=== PATIENT | female | born 1955 | race Caucasian/White ===

== ENCOUNTER 2020-03-26 13:41 | Outpatient (CLI) | payer OTHER, SELFPAY ==
--- NOTE | 2020-03-29 13:47 | WPDPFTINT ---
PFT Interpretation PFT Interpretation: This PFT met all criteria for ATS standards and reproducibility FEV/FVC 71% FEV1 112% FVC 110% FEF 25-75% 61% TLC 117% RV 124% RV/TLC 41% DLCO 102% when adjusted for alveolar volume but not adjusted for hemoglobin Flow volume loops showed some end expiratory coving Impression: Mild small airway obstruction with air trapping. This pattern may suggest Asthma or reactive airway disease. COPD is less likely but still possible. Clinical correlation is advised.
== END 2020-03-26 13:42 | disposition home or self-care (01) ==
PROVIDERS: PCP Family Medicine; Visit Provider Physician Assistant
DX: J98.01 Acute bronchospasm (principal); R94.2 Abnormal results of pulmonary function studies
CPT/HCPCS: 94060; 94726; 94729

== ENCOUNTER 2020-05-08 09:03 | Outpatient (CLI) | payer OTHER, SELFPAY | END 2020-05-08 09:04 | disposition home or self-care (01) | LOC: ANHCOVIDVC 09:03 | PROVIDERS: PCP Family Medicine | DX: Z23 Encounter for immunization (principal) | CPT/HCPCS: 0001A; 91300 ==

== ENCOUNTER 2020-05-29 09:04 | Outpatient (CLI) | payer OTHER, SELFPAY | END 2020-05-29 09:05 | disposition home or self-care (01) | LOC: ANHCOVIDVC 09:04 | PROVIDERS: PCP Family Medicine | DX: Z23 Encounter for immunization (principal) | CPT/HCPCS: 0002A; 91300 ==

== ENCOUNTER 2020-07-29 12:28 | Outpatient (CLI) | payer OTHER, SELFPAY ==
--- NOTE | 2020-07-30 12:40 | WPDMETH ---
Methacholine Procedure Perform Procedure Performed Methacholine Challenge Methacholine Challenge This is a methacholine challenge test. The test was performed and interpreted in accordance with the 1999 [employer] guidelines. The test was performed with increasing doses of nebulized methacholine using a 2 minute tidal breathing protocol. The best post-methacholine FEV1 values were used to calculate the change from the post diluent FEV1. Findings: Baseline FEV1 2.29 L, 96% predicted. Post diluent FEV1 2.28 L Post 0.025 mg/ml methacholine FEV1 2.18 L, decreased 4% Post 0.25 mg/mL methacholine FEV1 2.22 L, decreased 2% Post 2.5 mg/mL methacholine FEV1 2.20 L, decreased 4% Post 10 mg/mL methacholine FEV1 2.11 L, decreased 7% Post 25 mg/mL methacholine FEV1 2.10 L, decreased 8% Post albuterol nebulization FEV1 2.34 L Impression: The PC20 is > 25 mg/ml which is categorized as normal bronchial responsiveness. There are no prior methacholine challenge studies for comparison
== END 2020-07-29 12:29 | disposition home or self-care (01) ==
PROVIDERS: PCP Family Medicine; Visit Provider Internal Medicine Pulmonary Disease
DX: R06.02 Shortness of breath (principal)
CPT/HCPCS: 94070; J7674

== ENCOUNTER → 2020-12-11 14:41 | Outpatient (CLI) | payer OTHER, SELFPAY ==
--- NOTE | ~2020-12-11 | XR_ITS ---
EXAMINATION: XR_CERV2-3V_CR DATE: 12/11/2020 15:15 INDICATION: Neck pain. TECHNIQUE: 4 views of cervical spine were obtained. COMPARISON: Cervical spine radiographs 04/09/2012 FINDINGS: Bone alignment is normal. Vertebral body heights are normal. There is moderately decreased disc height at C5-C6 and C6-C7. There is multilevel uncovertebral joint osteoarthritis, severe on the left at C5-C6. There is multilevel mild facet joint osteoarthritis. There is mild central canal sten osis at C5-C6 and C6-C7. No prevertebral soft tissue swelling. IMPRESSION: 1. Moderate cervical spondylosis. Reviewed, dictated and finalized at location A.
== END ==
PROVIDERS: PCP Family Medicine; Visit Provider Physician Assistant
DX: M54.2 Cervicalgia (principal); M47.812 Spondylosis without myelopathy or radiculopathy, cervical region
CPT/HCPCS: 72040

== ENCOUNTER → 2020-12-31 07:10 | Outpatient (CLI) | payer OTHER, SELFPAY ==
--- NOTE | ~2020-12-31 | MR_ITS ---
EXAMINATION: MR cervical spine wo con EXAM DATE: 12/31/2020 07:49 INDICATION: Cervicalgia. Right neck pain. TECHNIQUE: Multi-sequential, multiplanar MR images of the cervical spine were obtained without contra st. Axial T2, axial T2 MERGE sequence. Sagittal T1, T2, T2 fat saturation images also obtained. Th ere is no prior study for comparison. FINDINGS: There is moderate loss of the C5-6 and 6-7 disc height. The vertebral body and disc height s are otherwise well maintained. The spinal cord signal intensity and intrinsic morphology is normal. Cervicomedullary junction is normal in appearance. There are no suspicious marrow signal abnormaliti es. Paraspinal soft tissue is unremarkable. Level by level evaluation: C2-C3: Disc does not extend beyond the endplate margin. Uncovertebral joint arthropathy: None. Facet joint arthropathy: Moderate right-sided facet arthropathy. Neural foraminal stenosis: No stenosis. Central canal stenosis: No stenosis. C3-C4: Disc does not extend beyond the endplate margin. Uncovertebral joint arthropathy: Mild bilateral. Facet joint arthropathy: Severe right, moderate left. Neural foraminal stenosis: No stenosis. Central canal stenosis: No stenosis. C4-C5: Disc does not extend beyond the endplate margin. Uncovertebral joint arthropathy: Mild bilateral. Facet joint arthropathy: Moderate to severe bilateral. Neural foraminal stenosis: Minimal bilateral. Central canal stenosis: No stenosis. C5-C6: There is a mild diffuse disc bulge. Uncovertebral joint arthropathy: Moderate left, mild to moderate right. Facet joint arthropathy: Mild bilateral. Neural foraminal stenosis: Moderate left, mild to moderate right. Central canal stenosis: Mild. C6-C7: Disc does not extend beyond the endplate margin. Uncovertebral joint arthropathy: Mild to moderate bilateral. Facet joint arthropathy: Mild bilateral. Neural foraminal stenosis: Mild to moderate bilateral. Central canal stenosis: No stenosis. C7-T1: Disc does not extend beyond the endplate margin. Uncovertebral joint arthropathy: Mild bilateral. Facet joint arthropathy: Mild to moderate bilateral. Neural foraminal stenosis: No stenosis. Central canal stenosis: No stenosis. IMPRESSION: 1. Moderate midcervical spondylosis. Reviewed, dictated and finalized at location A.
== END ==
PROVIDERS: PCP Family Medicine; Visit Provider Nurse Practitioner Family
DX: M54.2 Cervicalgia (principal); M47.812 Spondylosis without myelopathy or radiculopathy, cervical region
CPT/HCPCS: 72141

== ENCOUNTER → 2021-04-23 14:35 | Outpatient (CLI) | payer OTHER, SELFPAY ==
--- NOTE | ~2021-04-23 | DEXA_ITS ---
Bone Density Report Name: DELICIA LINDSAY Age: 65 Sex: Female Ethnicity: White Date of : 1955 Indication: osteopenia; monitoring treatment; postmenopausal Referring Provider: Erin, Avril Velazquez Study: Bone densitometry was performed. Exam Date: April 23, 2021 Accession number: [id number] Bone Density: Region BMD T-score Z-score Classification AP Spine (L1-L4) 0.922 -1.1 0.6 Osteopenia Femoral Neck (Left) 0.674 -1.6 -0.1 Osteopenia Total Hip (Left) 0.881 -0.5 0.7 Normal Femoral Neck (Right) 0.637 -1.9 -0.4 Osteopenia Total Hip (Right) 0.871 -0.6 0.6 Normal Total Hip Mean 0.876 -0.6 0.7 Normal World Health Organization criteria for BMD impression classify patients as: Normal (T-score at or above -1.0), Osteopenia (T-score between -1.0 and -2.5), or Osteoporosis (T-score at or below -2.5). 10-year Fracture Risk: FRAX not reported because: Treated for osteoporosis Previous Exams: Region Exam Age BMD T-score BMD Change BMD Change Date g/cm2 vs Baseline vs Previous AP Spine(L1-L4) 04/23/2021 65 0.922 -1.1 -0.095* 0.016 03/15/2019 63 0.905 -1.3 -0.111* -0.020 02/17/2017 61 0.925 -1.1 -0.091* 0.019 03/17/2014 58 0.906 -1.3 -0.111* -0.108* 09/18/2009 54 1.014 -0.3 -0.003 -0.003 06/16/2004 49 1.016 -0.3 Total Hip(Left) 04/23/2021 65 0.881 -0.5 -0.032* 0.036* 03/15/2019 63 0.845 -0.8 -0.068* -0.016 02/17/2017 61 0.860 -0.7 -0.052* 0.002 03/17/2014 58 0.859 -0.7 -0.054* -0.061* 09/18/2009 54 0.920 -0.2 0.007 0.007 06/16/2004 49 0.912 -0.2 Total Hip(Right) 04/23/2021 65 0.871 -0.6 -0.035* -0.018 03/15/2019 63 0.889 -0.4 -0.017 0.033* 02/17/2017 61 0.856 -0.7 -0.050* -0.011 03/17/2014 58 0.867 -0.6 -0.039* -0.027 09/18/2009 54 0.893 -0.4 -0.012 -0.012 06/16/2004 49 0.906 -0.3 *Denotes significance at 95% confidence level, LSC for AP Spine = 0.022 g/cm2, LSC for Total Hip = 0.027 g/cm2 Clinical Information Provided by Patient: Is being treated for osteoporosis Has used the following medications: Evista (i.e. raloxifene), Vitamin D Patient maximum height was 63.7 Menopause Age: 57 Onset of menses at age 17 Number of children 4
== END ==
PROVIDERS: PCP Family Medicine; Visit Provider Nurse Practitioner Obstetrics & Gynecology
DX: Z78.0 Asymptomatic menopausal state (principal); M85.88 Other specified disorders of bone density and structure, other site; M85.852 Other specified disorders of bone density and structure, left thigh; M85.851 Other specified disorders of bone density and structure, right thigh
CPT/HCPCS: 77080

== ENCOUNTER 2022-01-05 08:24 | Outpatient (CLI) | payer MEDICARE, SELFPAY ==
[2022-01-05 18:51] LABS: Hematocrit 41.3 % (37.0-47.0); Hemoglobin 13.2 g/dL (12.0-15.0); Mean Corpuscular Hemoglobin 30.4 pg (26-34); Mean Corpuscular Volume 95.2 fl (80-100); Mean Platelet Volume 10.6 fl (7.4-10.4); Platelet Count Result 246 k/mm3 (150-375); Red Blood Count 4.34 M/mm3 (4.2-5.4); Red Cell Distribution Width 13.1 % (11.5-14.5); White Blood Count 4.6 K/mm3 (4.5-10.0)
[2022-01-05 19:06] LABS: Alanine Aminotransferase 21 U/L (6-35); Albumin Level 4.4 g/dL (3.5-5.1); Alkaline Phosphatase 74 U/L (38-126); Anion Gap 7 mmol/L (8-16); Aspartate Amino Transferase 31 U/L (14-36); Bilirubin,Total 0.6 mg/dL (0.2-1.3); Blood Urea Nitrogen 20 mg/dL (7-17); Calcium 8.9 mg/dL (8.4-10.2); Carbon Dioxide 27 mmol/L (22-30); Chloride 105 mmol/L (98-107); Cholesterol 225 mg/dL (0-200); Estimated Glomerular Filt Rate > 60; Glucose 93 mg/dL (65-110); HDL Direct 82 mg/dL; Sodium 139 mmol/L (137-145); Triglycerides 56 mg/dL (<150)
[2022-01-05 19:18] LABS: LDL Cholesterol Direct 98 mg/dL
[2022-01-05 19:26] LABS: Vitamin D 25 Hydroxy 65.7 ng/mL
== END 2022-01-05 08:25 | disposition home or self-care (01) ==
LOC: ANHGOSHLAB 08:28
PROVIDERS: PCP Family Medicine; Visit Provider Nurse Practitioner
DX: E53.8 Deficiency of other specified B group vitamins (principal); E55.9 Vitamin D deficiency, unspecified; Z13.220 Encounter for screening for lipoid disorders; Z13.6 Encounter for screening for cardiovascular disorders
CPT/HCPCS: 36415; 80053; 80061; 82306; 82607; 85027

== ENCOUNTER 2022-06-18 09:39 | Emergency (ER) | payer MEDICARE, SELFPAY ==
--- NOTE | 2022-06-18 09:44 | ED.EYEPROB ---
HPI - Eye Problem General Chief complaint: Eye Problems Stated complaint: rt eye redness Source: patient Mode of arrival: ambulatory Limitations: no limitations History of Present Illness HPI Narrative: Patient is a 67-year-old female that presents with right eye irritation, discharge, swelling. States she noticed it last night and tried just lubricating drops with no relief. Patient reports it is itching. Did not wear contacts today has been wearing glasses since eye irritation started. Denies any vision changes Related Data Home Medications Medication Instructions Recorded Confirmed raloxifene 60 mg tablet 60 mg PO DAILY 11/01/19 06/18/22 cholecalciferol (vitamin D3) 25 3,000 unit PO DAILY 07/01/20 06/18/22 mcg (1,000 unit) capsule vitamin B complex (B 1 tablet PO DAILY 07/01/20 06/18/22 Complex-Vitamin B12 tablet) vitamins A,C,W-ujwz-femrab 2,148 1 tablet PO ONCE 01/05/22 06/18/22 mcg-113 mg-45 mg-17.4 mg tablet (PreserVision AREDS) Allergies Allergy/AdvReac Type Severity Reaction Status Date / Time cat dander Allergy Unknown Skin Verified 06/18/22 09:52 Reaction albuterol AdvReac Mild jittery, Verified 06/18/22 09:52 nausea Review of Systems Review of Systems: All systems reviewed & are unremarkable except as noted in HPI and below Constitutional: Constitutional: Denies body ache(s), Denies fever(s), Denies headache(s), Denies malaise and Denies weakness Eyes: Eyes: Denies blurry vision, Reports eye discharge, Reports irritation, Reports itchy eyes, Denies loss of vision and Denies eye pain ENT: Denies otalgia, Denies headache(s), Denies nasal discharge, Denies sinus pain and Denies sore throat Cardiovascular: Cardiovascular: Denies chest pain, Denies irregular heart rhythm and Denies dyspnea Respiratory: Respiratory: Denies dyspnea Gastrointestinal: Gastrointestinal: Denies abdominal pain, Denies melena, Denies hematochezia, Denies diarrhea, Denies nausea and Denies vomiting Musculoskeletal: Musculoskeletal: Denies back pain, Denies myalgias and Denies arthralgias Integumentary/Breasts: Skin/Breast: Denies pruritus and Denies rash Neurologic: Denies headache(s), Denies loss of vision and Denies weakness Psychiatric: Psychiatric: Reports no additional psychiatric complaints Allergic/Immunologic: Allergic/Immunologic: Reports itchy eyes PMFSH Past Medical History Medical History COVID-19 (04/08/20) Hepatitis C antibody test negative (05/14/20) Rupture, spleen (~1990) Surgical History Surgical History History of bilateral tubal ligation History of carpal tunnel release Hx of tonsillectomy Family History Family History Mother Cerebrovascular accident Family history of malignant neoplasm of uterus Family history of malignant neoplasm of breast in first degree relative Grandparent Family history of Alzheimer's disease Family history of malignant neoplasm of breast Father Family history of lung cancer Social History Social History Smoking status: Never smoker Alcohol intake: current Alcohol use details: occasionnally Substance use: never Substance use type: does not use Lack of Transportation: No Lack of Food: Never True Current Housing: I Have Housing Concerned About Future Housing: No Difficulty Paying Gas/Electric Bills: No Difficulty Paying for Meds: No Currently Unemployed: No Education: Master's Degree or Higher Difficulty w/ Childcare or Family Care: No Living arrangements: with family Occupation/Education: retired Gender identity (if verbalized by the patient): Female Agree to blood products: Yes Comments At time of signature, agree with nursing past medical, surgical, social and family history. Th
[2022-06-18 09:47] VITALS: BP 110/52; PULSE 75; RESP 16; TEMP 35.4; O2SAT 99
== END 2022-06-18 10:18 | disposition home or self-care (01) ==
PROVIDERS: Emergency Provider Nurse Practitioner Family; PCP Family Medicine
DX: H10.9 Unspecified conjunctivitis (principal); Z86.16 Personal history of COVID-19
CPT/HCPCS: 99213; G0463

== ENCOUNTER 2022-12-01 08:56 | Outpatient (CLI) | payer MEDICARE, SELFPAY ==
--- NOTE | 2022-12-20 18:29 | WPDSLEEPSTUD ---
Sleep Study Date of Study: 12/01/22 Ordering Provider: ANGEL Vazquez Interpreting Physician: Mague Palma, DO Sleep Study Type: Polysomnogram Height: 1.63 m Weight: 63.503 kg Body Mass Index: 24.0 Neck Circumference (inches): 14 [place]: 7 Reason for Sleep Study Loud snoring, difficulty falling asleep and maintaining sleep Sleep History The patient is a 67-year-old female that had a sleep study ordered by her primary care for evaluation of sleep apnea. The patient occasionally awakens from sleep short of breath. She rarely awakens at night with heartburn, belching or cough. She frequently snores and is constantly loud enough that others complain. She occasionally has trouble sleeping when she has a cold. She rarely wakes up gasping for air throughout the night. She rarely has breathing problems at night observed by herself or others. She rarely sweats excessively at night. She rarely has heart palpitations or irregular heartbeats during the night. She occasionally falls asleep during the day but never while driving. She denies sleep paralysis and cataplexy. She rarely has trouble at school or work due to sleepiness. She occasionally experiences vivid dreamlike scenes upon awakening or asleep. She constantly feels afraid of going to sleep. She occasionally has nightmares but rarely remembers her dreams. She frequently has thoughts racing through mind. She occasionally feels sad or depressed. She constantly has anxiety. She frequently has muscular tension. She occasionally notices parts of her body jerk. She occasionally kicks during the night. She occasionally has crawling and aching feelings in legs and frequently has leg pain during the night. She occasionally grinds her teeth during sleep but never awakens with morning jaw pain. She is occasionally bothered by pain during the day and occasionally awakened by pain during the night. She occasionally wakes feeling stiff in the morning. She occasionally wakes up with sore or achy muscles. She frequently wakes up with pain in the neck, spine or other joints. She goes to bed between 10:30-11 p.m. on both weekdays and weekends. It takes her 15-30 minutes to fall asleep. She wakes up 3 or 4 times throughout the night for unknown reasons. She awakens, she will read and will take 15-60 minutes to fall back asleep. She wakes up between 5-6 a.m. on both weekdays and weekends. She typically gets 6 hours of sleep per night she does not stay in bed after waking up in the morning. She currently lives with her spouse and adult son. She denies consuming any caffeinated beverages within 2 hours of bedtime. She denies engaging in physical exercise before bedtime. She will read before falling asleep. She denies taking naps in the afternoon or the evening. She denies consuming any caffeinated beverages throughout the day. She denies tobacco, alcohol and recreational drug use. FOR[facility]LY [facility] Past Medical History Medical History COVID-19 (04/08/20) Hepatitis C antibody test negative (05/14/20) Rupture, spleen (~1990) Surgical History Surgical History History of bilateral tubal ligation History of carpal tunnel release Hx of tonsillectomy Family History Family History Mother Cerebrovascular accident Family history of malignant neoplasm of uterus Family history of malignant neoplasm of breast in first degree relative Grandparent Family history of Alzheimer's disease Family history of malignant neoplasm of breast Father Family history of lung cancer Social History Social History Smoking status: Never smoker Alcohol intake: current Alcohol use details: occasionnally Substance use: never Substance use type: does not use Lack of T
[2022-12-20 18:35] VITALS: BMI 24.0
== END 2022-12-02 05:57 | disposition home or self-care (01) ==
LOC: ANHCSM 08:57
PROVIDERS: PCP Family Medicine; Visit Provider Nurse Practitioner
DX: R06.83 Snoring (principal); R06.81 Apnea, not elsewhere classified
CPT/HCPCS: 95810

== ENCOUNTER 2023-03-08 08:00 | Outpatient (RCR) | payer MEDICARE, SELFPAY ==
--- NOTE | 2023-02-01 09:14 | OPREHPOC ---
Outpatient Therapy Plan of Care This is a Multidisciplinary Plan of Care that may contain components documented by all disciplines (PT, OT, and ST.) PT Problem 1 PT Problem #1 Knowledge Deficit PT Goal 1 Goal 1*indep with HEP 2* good positioning with exercises PT Problem 2 PT Problem #2 Pain PT Goal 1 Goal 1* pt report radicular pain L LE to mid thigh at worst 2* pain rating at worst of 4/10 3* self assessment Oswestry score of 4% limitation in activity PT Problem 3 PT Problem #3 Impaired Flexibility PT Goal 1 Goal *1 increase L anterior hip/quad length with prone knee flexion 160' 2* supine L hamstring stretch without pain at end range of motion PT Problem 4 PT Problem #4 Impaired Strength PT Goal 1 Goal 1* pt stand with R trunk in neutral/ no forward rotation R 2* pt perform mat trunk/abdominal strengthening exercises x 20 reps
--- NOTE | 2023-02-01 09:14 | PTOPEVAL1 ---
Assessment and note entered by Lora Munguia, PT Evaluation Information Assessment Status Evaluation Diagnosis sciatica Onset Nov 2022 Subjective Information no trauma or injury; gradual increase in pain; have had sciatica into her R leg, but now is in her L; may have overdone it with her yoga classes; past few months, have not been doing yoga due to family crisis; no imaging. has not had PT for her back history of neck pain and had PT treatment. 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 Radicular pain into L LE to ankle is intermittent. She reports most pain increase with sitting and self assessment Oswestry of 10% limitation in activity level. Onset of pain was gradual and correlated with not doing her usual yoga activity for the past few months. 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 With the evaluation: she has tightness over L anterior /hip quad muscle and L SLR at end range of supine hamstring stretch; poor standing and sleeping position of trunk and hips, with curvature of lumbar spine--concave and forward rotation of R side. Pain is increased with hip flexion position. Skilled PT services are indicated to increase trunk strength, to improve position, modalities PRN for pain control and therapeutic exercises with education for HEP and posture. Plan of Care Interventions Maegan
--- NOTE | 2023-03-08 08:10 | PCPTNOTE ---
pt was 10 min late for today's reevaluation;
--- NOTE | 2023-03-08 08:56 | PTOPDC ---
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 what to know why she is having more pain in her other leg; what is causing the back troubles. Does not want to have surgery; will call Yenni for follow up appointment. Will continue with the exercises at home and yoga as she is able to do. Reported Pain Level Pain Score Self Report Additional Pain Score Comments pain range in the past week 2-8/10;intermittent into both legs: R and L to lateral foot ~ 50% day in legs increase pain: bending trunk forward; sitting 1 hour then get up; decrease pain: self massage with exercise ball, stretching has not been using heat or ice for back, reinforced use PRN 10-15 for pain management discussed use of back brace or SI brace for stability over sacrum with increased activity or time of more pain, not to use all the time Assessment PT Clinical Summary Arielle has received 5 PT sessions. Compared to the initial evaluation: pain from 0-9/10 to 2-8/10; radicular pain was in R leg only to ankle, now is intermittent into both legs to feet self assessment Oswestry functional score from 10% to 12% limitation; posture is the same, with R forward rotation of trunk and hip, and curvature of spine; she has been educated on body mechanics and HEP. She has a good understanding of self management of pain. The goals were partially met. Arielle continues to want to know exactly what is causing her pain. Basic back anatomy and body mechanics education has been completed. Discharge PT and she is to continue with her HEP and pain management. Plan of Care PT Services Indicated No
== END 2023-03-08 09:34 | disposition home or self-care (01) ==
LOC: ANHPT 08:00
PROVIDERS: PCP Family Medicine; Visit Provider Nurse Practitioner
DX: M54.32 Sciatica, left side (principal)
CPT/HCPCS: 97110; 97140; 97161; 97530

== ENCOUNTER → 2023-03-14 11:29 | Outpatient (CLI) | payer MEDICARE, SELFPAY ==
--- NOTE | ~2023-03-14 | XR_ITS ---
XR sacrum coccyx min 2V DATE: 03/14/2023 12:05 INDICATION: Sacrococcygeal disorder TECHNIQUE: AP, angled AP and lateral views of sacrum and coccyx COMPARISON: None FINDINGS: Incidentally noted is grade 1 anterolisthesis at L4-5 and degenerative changes apophyseal j oints of the lower lumbar area. No sacral or coccygeal fracture or bone destruction is evident. Normal alignment at the sacroiliac tanya ints and pubic symphysis. IMPRESSION: No significant abnormality of sacrum or coccyx Grade 1 anterolisthesis at L4-5 due to degenerative change at the apophyseal joints Reviewed, dictated and finalized at location L. US ENUMERATOR IMPRESSION: No significant abnormality of sacrum or coccyx Grade 1 anterolisthesis at L4-5 due to degenerative change at the apophyseal tanya ints
--- NOTE | ~2023-03-14 | XR_ITS ---
XR pelvis 1-2V DATE: 03/14/2023 12:04 INDICATION: Pelvic and perineal pain TECHNIQUE: AP pelvis COMPARISON: None FINDINGS: No pelvic fracture or bone destruction. The pubic symphysis and sacroiliac joints are intac t. Hip joint spaces are symmetric and well preserved. IMPRESSION: No significant abnormality Reviewed, dictated and finalized at location L. LE BEVELER IMPRESSION: No significant abnormality
--- NOTE | ~2023-03-14 | XR_ITS ---
XR lumbar spine 2-3V DATE: 03/14/2023 12:04 INDICATION: Back pain TECHNIQUE: AP, lateral, coned lateral lumbosacral views COMPARISON: None FINDINGS: There is a prominent calcified calculus of an entire lower pole calyx of the left kidney. Minimal thoracolumbar levoscoliosis. There is degenerative change at the apophyseal joints particularly L4-5 and L5-S1, with associated gr desiree 1 anterolisthesis at L4-5. Lumbosacral interspaces are relatively preserved. No fracture or bone destruction is detected. Includ ed lower thoracic and lumbar pedicles are intact. The sacroiliac joints appear normal. IMPRESSION: Grade 1 anterolisthesis at L4-5 due to degenerative change at the apophyseal joints Calcified calculus, lower pole left kidney Reviewed, dictated and finalized at location L. INE ICER IMPRESSION: Grade 1 anterolisthesis at L4-5 due to degenerative change at the a pophyseal joints Calcified calculus, lower pole left kidney
== END ==
PROVIDERS: PCP Nurse Practitioner; Visit Provider Nurse Practitioner
DX: M53.3 Sacrococcygeal disorders, not elsewhere classified (principal); M43.16 Spondylolisthesis, lumbar region; N20.0 Calculus of kidney
CPT/HCPCS: 72100; 72170; 72220

== ENCOUNTER 2023-06-09 08:04 | Outpatient (CLI) | payer MEDICARE, SELFPAY | END 2023-06-09 08:05 | disposition home or self-care (01) | LOC: ANHAUDIO 08:05 | PROVIDERS: PCP Family Medicine; Visit Provider Nurse Practitioner | DX: H90.72 Mixed conductive and sensorineural hearing loss, unilateral, left ear, with unrestricted hearing on the contralateral side (principal); H90.41 Sensorineural hearing loss, unilateral, right ear, with unrestricted hearing on the contralateral side | CPT/HCPCS: 92557; 92567 ==

== ENCOUNTER 2023-10-06 08:29 | Outpatient (CLI) | payer MEDICARE, SELFPAY ==
[2023-10-06 14:28] LABS: Alanine Aminotransferase 15 U/L (6-35); Albumin Level 4.1 g/dL (3.5-5.1); Alkaline Phosphatase 69 U/L (38-126); Anion Gap 8 mmol/L (4-12); Aspartate Amino Transferase 53 U/L (14-36); Bilirubin,Total 0.5 mg/dL (0.2-1.3); Blood Urea Nitrogen 24 mg/dL (7-17); Calcium 8.7 mg/dL (8.4-10.2); Carbon Dioxide 28 mmol/L (22-30); Chloride 103 mmol/L (98-107); Cholesterol 218 mg/dL (0-200); Estimated Glomerular Filt Rate > 60; Glucose 80 mg/dL (65-110); HDL Direct 78 mg/dL; Potassium 3.9 mmol/L (3.4-5.0); Sodium 139 mmol/L (137-145); Triglycerides 51 mg/dL (<150)
[2023-10-06 14:40] LABS: LDL Cholesterol Direct 108 mg/dL
[2023-10-06 15:16] LABS: Vitamin D 25 Hydroxy 57.9 ng/mL
== END 2023-10-06 08:30 | disposition home or self-care (01) ==
PROVIDERS: PCP Family Medicine; Visit Provider Nurse Practitioner
DX: E78.5 Hyperlipidemia, unspecified (principal); E55.9 Vitamin D deficiency, unspecified
CPT/HCPCS: 36415; 80053; 80061; 82306

== ENCOUNTER 2023-10-13 07:11 | Outpatient (CLI) | payer MEDICARE, SELFPAY ==
--- NOTE | ~2023-10-13 | DEXA_ITS ---
Bone Density Report Name: DELICIA LINDSAY Age: 68 Sex: Female Ethnicity: White Date of : 1955 Indication: postmenopausal; screening for osteoporosis; Referring Provider: FAROOQ DOMÍNGUEZ Study: Bone densitometry was performed. Exam Date: October 13, 2023 Accession number: [id number] Bone Density: Region BMD T-score Z-score Classification AP Spine(L1-L4) 0.892 -1.4 0.5 Osteopenia Femoral Neck (Left) 0.656 -1.7 -0.1 Osteopenia Total Hip (Left) 0.852 -0.7 0.6 Normal Femoral Neck (Right) 0.652 -1.8 -0.1 Osteopenia Total Hip (Right) 0.870 -0.6 0.8 Normal Femoral Neck Mean 0.654 -1.8 -0.1 Osteopenia Total Hip Mean 0.861 -0.7 0.7 Normal World Health Organization criteria for BMD impression classify patients as: Normal (T-score at or above -1.0), Osteopenia (T-score between -1.0 and -2.5), or Osteoporosis (T-score at or below -2.5). 10-year Fracture Risk: FRAX not reported because: Treated for osteoporosis Clinical Information Provided by Patient: Is being treated for osteoporosis Has used the following medications: Evista (i.e. raloxifene), Vitamin D Patient maximum height was 64 Menopause Age: 56 Drinks caffeinated beverages Onset of menses at age 17 Number of children 4 Impression: The patient has low bone mass, based on the Right Femoral Neck T-score. Discussion: It is important to ask patients whether they are taking their medications and to encourage continued and appropriate compliance with their osteoporosis therapies to reduce fracture risk. It is also important to review their risk factors and encourage appropriate calcium and vitamin D intakes, exercise, fall prevention and other lifestyle measures. Follow-Up: Consider a repeat BMD and Vertebral Fracture Assessment (VFA) exam in 2 years or sooner if medically necessary, to reassess this patient's status. Reported by: Dr. Chidi Wiggins on 10/13/2023 7:42:00 AM. Reviewed, dictated and finalized at location A. [facility]
== END 2023-10-13 07:12 | disposition home or self-care (01) ==
LOC: CHSIMG 07:13
PROVIDERS: PCP Family Medicine; Visit Provider Nurse Practitioner
DX: Z78.0 Asymptomatic menopausal state (principal); M85.89 Other specified disorders of bone density and structure, multiple sites
CPT/HCPCS: 77080

== ENCOUNTER 2024-04-04 16:16 | Outpatient (CLI) | payer MEDICARE, SELFPAY ==
--- NOTE | ~2024-04-04 | XR_ITS ---
HISTORY: M25.449 - Effusion, unspecified hand COMPARISON: None TECHNIQUE: 5 views of the fourth digit were performed. FINDINGS: No acute or subacute fracture. Gullwing deformity is identified within the visualized proximal interphalangeal joint spaces. Remaining joint spaces are otherwise preserved and alignment is maintained. Significant soft tissue swelling overlying the distal shaft of the proximal phalanx of the left fourt h digit is appreciated. Age-appropriate mineralization. IMPRESSION: Degenerative disease without acute fracture. Significant soft tissue swelling. Reviewed, dictated and finalized at location A. R WINDER
== END 2024-04-04 16:17 | disposition home or self-care (01) ==
LOC: GOSHIMG 16:17
PROVIDERS: PCP Nurse Practitioner; Visit Provider Nurse Practitioner
DX: M19.042 Primary osteoarthritis, left hand (principal); M25.449 Effusion, unspecified hand
CPT/HCPCS: 73140

== ENCOUNTER 2024-06-27 08:09 | Outpatient (CLI) | payer MEDICARE, SELFPAY ==
--- OUTSIDE RECORDS SUMMARY | 2024-06-27 08:13 | XMS_ITS | Clinical Summary ---
Author Organization [facility] Address [address] [place] [address] Care Team Providers Care Final Inspector And Tester Name Role Phone Maria Elena Bowers DO Primary Care Provider [phone] Allergies Active Allergy Reactions Criticality Noted Date Comments Albuterol Other (See comments) Low 11/01/2023 Shaking/Nervous Medications raloxifene (EVISTA) 60 mg tablet 01/06/2018 Active multivitamin tablet Take 1 tablet by mouth daily Active calcium-vitamin D3-vitamin K 500-100-40 mg-unit-mcg tablet,chewable Take by mouth daily Active busPIRone (BUSPAR) 7.5 mg tablet 7.5 MG ORALLY TWICE A DAY 10/02/2023 Active Active Problems Problem Noted Date Diagnosed Date Conductive hearing loss of left ear 11/01/2023 History of abnormal mammogram 02/05/2018 Surgical History Surgery Date Site/Laterality Comments COLONOSCOPY 2017 TONSILECTOMY, ADENOIDECTOMY, BILATERAL MYRINGOTOMY AND TUBES TUBAL LIGATION Medical History Medical History Date Comments HL (hearing loss) 2014 Family History Medical History Relation Name Comments Snoring Brother Edgar Gregorio Cancer Father Deep Hickmanlisa Hearing loss Father Deep Hickmanlisa Snoring Father Deep Bradshaw Jg Cancer Father's Sister Bernie Kelly Allergies Mother Dorothea Jg Breast cancer Mother Dorothea Jg Adenocarc inoma of breast - (Added by TW Conv) Cancer Mother Dorothea Jg Rashes / Skin problems Mother Dorothea Gregorio Snoring Mother Dorothea Gregorio Cancer Paternal Grandfather Deep Gregorio Hearing loss Paternal Grandfather Deep Gregorio Snoring Paternal Grandfather Deep Gregorio Cancer Paternal Grandmother Caridad Gregorio Snoring Paternal Grandmother Caridad Gregorio Cancer Sister 1 Paige Toscano Snoring Sister 2 Paige Toscano Relation Name Status Comments Brother Edagr Gregorio Father Deep Gregorio Father's Sister Bernie Hurd Mother Dorothea Gregorio Paternal Grandfather Deep Gregorio Paternal Grandmother Caridad Hickmani Sister 1 Paige Toscano Sister 2 Paige Toscano Social History Tobacco Use Types Packs/Day Years Used Date Smoking Tobacco: Never Smokeless Tobacco: Never Tobacco Cessation:Counseling Given: Not Answered Alcohol Use Standard Drinks/Week Comments Yes 1 (1 standard drink = 0.6 oz pur e alcohol) week Comments No Sex and Gender Information Value Date Recorded Sex Assigned at Not on file Legal Sex Female 3:55 AM TRANSPORTATION SECURITY OFFICER Gender Identity Not on file Sexual Orientation Not on file Obstetrics History Last Filed Vital Signs Vital Sign Reading Time Taken Comments Blood Pressure 98/56 11/01/2023 9:37 AM CDT Pulse 76 11/01/2023 9:37 AM CDT Temperature - - Respiratory Rate - - Oxygen Saturation - - Inhaled Oxygen Concentration - - Weight 63.5 kg (140 lb) 11/01/2023 9:37 AM CDT Height 162.6 cm (5' 4 ) 11/01/2023 9:37 AM CDT Body Mass Index 24.03 11/01/2023 9:37 AM CDT Plan of Treatment Health Maintenance Due Date Last Done Comments Colon Cancer Screening-Colonoscopy 1955 Depression Screening 1955 Fall Risk Assessment 1955 Hepatitis C Screening 1955 Osteoporosis Screening-Bone Density Scan 1955 DTaP/Tdap/Td Vaccine (1 - Tdap) 06/01/1967 Hepatitis B Screening 1974 Pneumococcal vaccine 65+ (1 of 1 - PCV) 2006 Zoster Vaccine (2 of 3) 04/04/2017 02/07/2017 Well Visit 65+ 2021 Influenza Vaccine (Season Ended) 2024 12/28/19 19, 11/10/2017 Breast Cancer Screening-Mammogram 03/15/2025 03/15/2024, 03/08/2023, 02/11/2022, Additional history exists Procedures Procedure Name Priority Date/Time Associated Diagnosis Comments SCREENING MAMMOGRAM BILATERAL W GARRY Schedule Routine, Read Routine (OP Routine) 03/15/2024 8:14 AM TRANSPORTATION SECURITY OFFICER Screening mammogram, encounter for from Last 3 Months or Most Recently Relevant to Health Maintenance Results * Screening Mammogram Bilateral W Garry (03/15/2024 8:14 AM TRANSPORTATION SECURITY OFFICER) Anatomical Region Laterality Modality Breast Bilateral Mammography Narrative 03/15/2024 11:54 AM TRANSPORTATION SECURITY OFFICER Mammogram Technique: Bilateral Digital Breast Tomosynthesis, Bilateral C-view 2D Screening mammogram. Views obtained: bilateral craniocaudal and bilateral mediolateral oblique. Computer Aided Detection was performed. Mammogram Findings: The present examination has been compared to prior imaging studies performed at [facility] on 02/10/2021, 02/11/2022 and 03/08/2023. The breasts are heterogeneously dense, which may obscure small masses. There is no suspicious abnormality in either breast. Impression: There is no mammographic evidence of malignancy. Annual screening mammography is recommended. If supplemental screening is desired, breast MRI would be recommended in this patient with heterogeneously dense breasts. OVERALL FINAL ASSESSMENT: BI-RADS CATEGORY 1: Negative. Procedure Note Jaden Wilkerson MD - 03/15/2024 Mammogram Technique: Bilateral Digital Breast Tomosynthesis, Bilateral C-view 2D Screening mammogram. Views obtained: bilateral craniocaudal and bilateral mediolateral oblique. Computer Aided Detection was performed. Mammogram Findings: The present examination has been compared to prior imaging studies performed at [facility] on 02/10/2021, 02/11/2022 and 03/08/2023. The breasts are heterogeneously dense, which may obscure small masses. There is no suspicious abnormality in either breast. Impression: There is no mammographic evidence of malignancy. Annual screening mammography is recommended. If supplemental screeningis desired, breast MRI would be recommended in this patient with heterogeneously dense breasts. OVERALL FINAL ASSESSMENT: BI-RADS CATEGORY 1: Negative. us Self Screening Mammogram IMG MAMMO PROCEDURES Fi nal Result from Last 3 Months or Most Recently Relevant to Health Maintenance Insurance MEDICARE ADVANTAGE CHOICE PLUS [facility] MDCR HMO REF Care Teams Final Inspector And Tester Relationship Specialty Start Date End Date Maria Elena Bowers DO PCP - General Family Medicine 02/11/22
--- OUTSIDE RECORDS SUMMARY | 2024-06-27 08:13 | XMS_ITS | Clinical Summary ---
Author Organization [facility] Address [address] [place] [address] Care Team Providers Care Emerging Technologies Director Name Role Phone Marline Menendez MD Primary Care Provider [phone] Source Comments [facility],non-owned Affiliates and Associated Physician Practices is amultiple site organization consisting of ambulatory clinics and hospital sitesin [place], [place], [place] and [place]. This disclosure is being madepursuant to the Care Everywhere program and may not contain all information available regarding this patient. Last updated 17.Habbits Allergies No known active allergies Medications * Be aware that medications may not be up to date on this document. Alwaysverify current medications with the patient. raloxifene (EVISTA) 60 MG tablet Take 60 mg by mouth once daily Active Social History Tobacco Use Types Packs/Day Years Used Date Smoking Tobacco: Never Smokeless Tobacco: Never Alcohol Use Standard Drinks/Week Comments Yes 0 (1 standard drink = 0.6 oz pur e alcohol) min Comments Unknown Sex and Gender Information Value Date Recorded Sex Assigned at Not on file Legal Sex Female 11:46 AM INSPECTOR RAW QUARTZ Gender Identity Not on file Sexual Orientation Not on file Last Filed Vital Signs Vital Sign Reading Time Taken Comments Blood Pressure 91/46 04/29/2019 10:45 AM INSPECTOR RAW QUARTZ Pulse 75 04/29/2019 10:50 AM INSPECTOR RAW QUARTZ Temperature 36.4 C (97.6 F) 04/29/2019 10:05 AM INSPECTOR RAW QUARTZ Respiratory Rate 23 04/29/2019 9:59 AM INSPECTOR RAW QUARTZ Oxygen Saturation 100% 04/29/2019 10:50 AM INSPECTOR RAW QUARTZ Inhaled Oxygen Concentration - - Weight 61.7 kg (136 lb) 04/29/2019 9:14 AM INSPECTOR RAW QUARTZ Height 162.6 cm (5' 4 ) 04/29/2019 9:14 AM INSPECTOR RAW QUARTZ Body Mass Index 23.34 04/29/2019 9:14 AM INSPECTOR RAW QUARTZ Plan of Treatment Health Maintenance Due Date Last Done Comments BONE DENSITY TESTING 1955 COLOGUARD (AGES 45-75) - COL ON CA SCREENING 1956 CT COLONOGRAPHY - COLON CA SCREENING 1956 FIT - COLON CA SCREENING 1956 FLEX SIG - COLON CA SCREENING 1956 LIPID TESTING 1956 HEPATITIS C SCREENING 05/27/1974 DTAP/TDAP/TD VACCINES (1 - Tdap) 06/01/1975 PNEUMOCOCCAL VACCINE 50+ (1 of 1 - PCV) 2006 ZOSTER VACCINE (1 of 2) 2006 MAMMOGRAM 02/05/2021 02/05/2019 COVID-19 VACCINE (1 - 2023-2 5 season) 2023 DEPRESSION SCREENING 02/28/2024 INFLUENZA VACCINE (Season Ended) 2024 COLON MONITORING 04/28/2029 04/29/2019, 04/29/2019 COLONOSCOPY - COLON CA SCREENING 04/28/2029 04/29/2019, 04/29/2019 Colorectal Cancer Screening 04/28/2029 Respiratory Syncytial Virus (RSV) Vaccine Pt: or over 60 yrs (1 - 1-dose 75+ series) 06/01/2031 HEPATITIS B VACCINE Aged Out No longe r eligible based on patient's age to complete this topic HIB VACCINE Aged Out No longer eligi ble based on patient's age to complete this topic HPV VACCINE Aged Out No longer eligi ble based on patient's age to complete this topic MENINGOCOCCAL (Group B) VACCINE SHARED DECISION-MAKING Aged Out No longer eligible based on patient's age to complete this topic MENINGOCOCCAL GROUPS A/C/Y/W VACCINE Aged Out No longer eligible b ased on patient's age to complete this topic Procedures Procedure Name Priority Date/Time Associated Diagnosis Comments ENDOSCOPY, COLON, SCREENING Routine 04/29/2019 9:43 AM INSPECTOR RAW QUARTZ from Last 3 Months or Most Recently Relevant to Health Maintenance Results * ENDOSCOPY, COLON, SCREENING (04/29/2019 9:43 AM INSPECTOR RAW QUARTZ) Report Endoscopy POC _ Patient Name: Arielle Magana Procedure Date: 04/29/2019 9:43 AM Date of : 1955 Admit Type: Outpatient Age: 63 Room: ROOM 1 Gender: Female Attending MD: Prasad Restrepo MD _ Procedure: Colonoscopy Indications: Screening for colorectal malignant neoplasm, Last colonoscopy: 2010 Providers: Prasad Restrepo MD, Amee Jacobs RN, Jenni Lima CRNA (Anesthesia Staff) Medicines: Propofol per Anesthesia Complications: No immediate complications. _ Procedure: Pre-Anesthesia Assessment: - Prior to the procedure, a History and Physical was performed, and patient medications and allergies were reviewed. The patient's tolerance of previous anesthesia was also reviewed. The risks and benefits of the procedure and the sedation options and risks were discussed with the patient. All questions were answered, and informed consent was obtained. Prior Anticoagulants: The patient has taken no previous anticoagulant or antiplatelet agents. ASA Grade Assessment: II - A patient with mild systemic disease. After reviewing the risks and benefits, the patient was deemed in satisfactory condition to undergo the procedure. After I obtained informed consent, the scope was passed under direct vision. Throughout the procedure, the patient's blood pressure, pulse, and oxygen saturations were monitored continuously. The Colonoscope was introduced through the anus and advanced to the terminal ileum. The terminal ileum and the appendiceal orifice were photographed. The quality of the bowel preparation was adequate. Findings: Diverticula were found in the sigmoid colon. Internal hemorrhoids were found during retroflexion. The exam was otherwise without abnormality. _ Impression: - Diverticulosis in the sigmoid colon. - Internal hemorrhoids. - The examination was otherwise normal. - No specimens collected. Recommendation: - High fiber diet. - Repeat colonoscopy in 10 years for screening purposes. - Continue present medications. - Patient has a contact number available for emergencies. The signs and symptoms of potential delayed complications were discussed with the patient. Return to normal activities tomorrow. Written discharge instructions were provided to the patient. Procedure Code(s): --- Professional --- G0121, Colorectal cancer screening; colonoscopy on individual not meeting criteria for high risk --- Technical --- G0121, Colorectal cancer screening; colonoscopy on individual not meeting criteria for high risk Diagnosis Code(s): --- Professional --- Z12.11, Encounter for screening for malignant neoplasm of colon K64.8, Other hemorrhoids K57.30, Diverticulosis of large intestine without perforation or abscess without bleeding --- Technical --- Z12.11, Encounter for screening for malignant neoplasm of colon K64.8, Other hemorrhoids K57.30, Diverticulosis of large intestine without perforation or abscess without bleeding CPT copyright 2017 [employer]. All rights reserved. The codes documented in this report are preliminary and upon technical writing lead/mgr review may be revised to meet current compliance requirements. ___ Prasad Restrepo MD 04/29/2019 10:01:01 AM This report has been signed electronically. Number of Addenda: 0 Note Initiated On: 04/29/2019 9:43 AM Estimated Blood Loss: Estimated blood loss: none. [facility] ENDOSCOPY 04/29/2019 9:43 AM INSPECTOR RAW QUARTZ Prasad Restrepo MD GI PROCEDURE ORDERABLES Edit ed Result - Final [facility] ENDOSCOPY from Last 3 Months or Most Recently Relevant to Health Maintenance Insurance [facility] Care Teams Emerging Technologies Director Relationship Specialty Start Date End Date Marline Menendez MD [address] [place] [address] PCP - General Family Medicine 03/18/19
--- OUTSIDE RECORDS SUMMARY | 2024-06-27 08:13 | XMS_ITS | Referral Summary ---
Author Organization [facility] Address [address] [place] [address] Care Team Providers Care Outbound Supervisor Name Role Phone Maria Elena Bowers DO Primary Care Provider [phone] Allergies Active Allergy Reactions Criticality Noted Date [...] ear 11/01/2023 History of abnormal mammogram 02/05/2018 Social History Tobacco Use Types Packs/Day Years Used Date Smoking Tobacco: Never Smokeless Tobacco: Never Tobacco Cessation:Counseling Given: Not Answered Alcohol Use Standard Drinks/Week Comments Yes 1 (1 standard drink = 0.6 oz pur e alcohol) week Comments No Sex and Gender Information Value Date Recorded Sex Assigned at Not on file Legal Sex Female 3:55 AM ROBOTICS SPECIALIST Gender Identity Not on file Sexual Orientation [...] 11/01/2023 9:37 AM CDT Plan of Treatment Not on file Procedures Procedure Name Priority Date/Time Associated Diagnosis Comments SCREENING MAMMOGRAM BILATERAL W GARRY Schedule Routine, Read Routine (OP Routine) 03/15/2024 8:14 AM ROBOTICS SPECIALIST Screening mammogram, encounter for from Last 3 Months or Most Recently Relevant to Health Maintenance Results * Screening Mammogram Bilateral W Garry (03/15/2024 8:14 AM ROBOTICS SPECIALIST) Anatomical Region Laterality Modality Breast Bilateral Mammography Narrative 03/15/2024 11:54 AM ROBOTICS SPECIALIST Mammogram Technique: Bilateral Digital Breast Tomosynthesis, Bilateral C-view 2D Screening mammogram. Views obtained: bilateral craniocaudal and bilateral mediolateral oblique. Computer Aided Detection was performed. Mammogram Findings: The present examination has been compared to prior imaging studies performed at [facility] on 02/10/2021, 02/11/2022 and 03/08/2023. The breasts [...] compared to prior imaging studies performed at [facility] on 02/10/2021, 02/11/2022 and 03/08/2023. The breasts [...] Relevant to Health Maintenance Insurance MEDICARE ADVANTAGE [facility] MEDIC[facility] Address: [address] [address] [place] [address] CHOICE PLUS [facility] HMO/PPO Address: [address] [address] [place] [address] [facility] MDCR HMO REF [facility] MEDIC[facility] Address: [address] [address] [place] [address] Care Teams Outbound Supervisor Relationship Specialty Start Date End Date Maria Elena Bowers DO PCP - General Family Medicine 02/11/22
--- OUTSIDE RECORDS SUMMARY | 2024-06-27 08:14 | XMS_ITS | Clinical Summary ---
Author Organization [facility] Address [address] [place] [address] Care Team Providers Care Rubber Curer Name Role Phone Unavailable Primary Care Provider Unavailabl e Social History Tobacco Use Types Packs/Day Years Used Date Smoking Tobacco: Never Assessed Comments Unknown Sex and Gender Information Value Date Recorded Sex Assigned at Not on file Legal Sex Female 5:00 PM CDT Gender Identity Not on file Sexual Orientation Not on file Plan of Treatment Health Maintenance Due Date Last Done Comments Colorectal Cancer Screening Colonoscopy (10 Years) 1956 Hepatitis C 1974 DTaP, Tdap and Td Vaccines ( 1 - Tdap) 06/01/1975 Mammogram Screening 1996 Pneumococcal Vaccine: 50+ Ye ars (1 of 1 - PCV) 2006 Zoster Vaccines (1 of 2) 2006 Dexa Scan (General) 2021 COVID-19 Vaccine ( - 2023-2 5 season) 2023 RSV Immunization or 60+ Years (1 - 1-dose 75+ series) 06/01/2031 Meningococcal B Vaccine Aged Out No l onger eligible based on patient's age to complete this topic Meningococcal Vaccine Aged Out No tomi ira eligible based on patient's age to complete this topic RSV Immunizations Under 20 Months Aged Out No longer eligible based on patient's age to complete this topic
--- OUTSIDE RECORDS SUMMARY | 2024-06-27 08:14 | XMS_ITS | Encounter Summary ---
Author Organization [facility] Address [address] [place] [address] Care Team Providers Care Account Associate Name Role Phone Marline Menendez MD Primary Care Provider [phone] No, Physician Primary Care Provider [phone] Maria Elena Bowers DO Primary Care Provider [phone] Encounter Details Date Type Department Care Team (Late st Contact Info) Description 02/06/2020 Telephone [facility] [address] [place] [address] [address] [place] [address] Lora Valdes, RT Social History Tobacco Use Types Packs/Day Years Used Date Smoking Tobacco: Never Smokeless Tobacco: Never Alcohol Use Standard Drinks/Week Comments Yes 1 (1 standard drink = 0.6 oz pur e alcohol) week Comments No Sex and Gender Information Value Date Recorded Sex Assigned at Not on file Legal Sex Female 3:55 AM 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
--- OUTSIDE RECORDS SUMMARY | 2024-06-27 08:14 | XMS_ITS | Clinical Summary ---
Author Organization [facility] Address [address] [place] [phone] Phone Care Team Providers Care Journalism Teacher Name Role Phone Lane Menendez MD Primary Care Provider [phone] Allergies No known active allergies Medications calcium-vitamin D3-vitamin K 500-100-40 mg-unit-mcg Oral Chew Take by mouth daily. Active multivitamin (DAILY-CLIFFORD) Oral tablet Take 1 Tab by mouth daily. 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 Gender Identity Not on file Sexual Orientation Not on file Last Filed Vital Signs Vital Sign Reading Time Taken Comments Blood Pressure 104/38 08/05/2010 3:49 PM CDT Pulse 88 08/05/2010 3:36 PM CDT Temperature 36.7 C (98 F) 08/05/2010 3:33 PM CDT Respiratory Rate 18 08/05/2010 3:49 PM CDT Oxygen Saturation 99% 08/05/2010 3:49 PM CDT Inhaled Oxygen Concentration - - Weight 63.5 kg (140 lb) 08/05/2010 2:14 PM CDT Height 162.6 cm (5' 4 ) 08/05/2010 2:14 PM CDT Body Mass Index 24.03 08/05/2010 2:14 PM CDT Plan of Treatment Health Maintenance Due Date Last Done Comments DTAP/TDAP/TD VACCINES (1 - Tdap) 06/01/1975 PNEUMOCOCCAL VACCINE 50+ YEARS (1 of 2 - PCV) 05/31/18 76 FIT-DNA Q 3 years 2001 FIT/FOBT Q 1 year 2001 Flex Sig/CT Colonography Q 5 years 2001 ZOSTER VACCINE (1 of 2) 2006 BREAST CANCER SCREENING 09/19/2009 09/19/2008 COLORECTAL SCREENING 08/05/2020 08/05/2010 Colorectal Cancer Screening 08/05/2020 OSTEOPOROSIS SCREENING 2021 INFLUENZA VACCINE (#1) 2023 RSV VACCINE (60+ or ) (1 - 1-dose 75+ series) 06/01/2031 Procedures Procedure Name Priority Date/Time Associated Diagnosis Comments MAMMO DIAGNOSTIC BILATERAL W OR WO CAD Routine 09/19/2008 from Last 3 Months or Most Recently Relevant to Health Maintenance Results * MAMMO DIGITAL DIAG BILAT (09/19/2008) Anatomical Region Laterality Modality Breast Bilateral Other us Abstract Provider MAMMO ORDERABLES Final Result from Last 3 Months or Most Recently Relevant to Health Maintenance Insurance Member Subscriber Plan / Payer (Ef fective 2020-Present) Name:Arielle Magana Relation to Subscriber:Self Name:Arielle Magana Payer ID:[id number] (NAIC) Type:O Address: [facility] [id number] [place] [id number] Advance Directives For more information, please contact: [phone] * Full Code (Latest Code Status on File) Date Activated Date Inactivated Comments 08/05/2010 2:10 PM 08/06/2010 2:33 AM Care Teams Journalism Teacher Relationship Specialty Start Date End Date Lane Menendez MD [address] [place] [address] [facility] - General 08/28/06
--- OUTSIDE RECORDS SUMMARY | 2024-06-27 08:14 | XMS_ITS | Encounter Summary ---
Author Organization [facility] Address [address] [place] [address] Care Team Providers Care Agency Operator Name Role Phone Lane Menendez MD Primary Care Provider [phone] Encounter Details Date Type Department Care Team (Late st Contact Info) Description 08/28/2006 Outpatient [facility] Geri Perez MD [address] [place] [phone] Special Screening for Malignant Neoplasms, Colon (Primary Dx) Social History Tobacco Use Types Packs/Day Years Used Date Smoking Tobacco: Never Assessed Comments Unknown Sex and Gender Information Value Date Recorded Sex Assigned at Not on file Legal Sex Female 4:26 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 Gender Identity Not on file Sexual Orientation Not on file documented as of this encounter Plan of Treatment Not on file documented as of this encounter Procedures Procedure Name Priority Date/Time Associated Diagnosis Comments POC , URINE Routine 08/28/2006 11:35 AM CDT documented in this encounter Results * POC , URINE (08/28/2006 11:35 AM CDT) , URINE POC Negative Negative INTERFACE SYSTEM 08/28/2006 11:3 5 AM CDT Geri Perez MD POINT OF CARE TESTING Ed ited INTERFACE SYSTEM Refer to clinic/hospital department documented in this encounter Visit Diagnoses Diagnosis Special screening for malignant neoplasms, colon- Primary documented in this encounter Care Teams Agency Operator Relationship Specialty Start Date End Date Lane Menendez MD [address] [id number] PCP - General 08/28/06 documented as of this encounter
[2024-06-27 19:25] LABS: Hematocrit 42.4 % (37.0-47.0); Hemoglobin 13.2 g/dL (12.0-15.0); Mean Corpuscular HGB Conc 31.1 g/dl (32-36); Mean Corpuscular Hemoglobin 30.3 pg (26-34); Mean Corpuscular Volume 97.5 fl (80-100); Mean Platelet Volume 10.9 fl (7.4-10.4); Platelet Count Result 219 k/mm3 (150-375); Red Blood Count 4.35 M/mm3 (4.2-5.4); Red Cell Distribution Width 13.1 % (11.5-14.5); White Blood Count 4.6 K/mm3 (4.5-10.0)
[2024-06-27 21:14] LABS: Alanine Aminotransferase 17 U/L (6-35); Albumin Level 4.1 g/dL (3.5-5.1); Alkaline Phosphatase 66 U/L (38-126); Anion Gap 6 mmol/L (4-12); Aspartate Amino Transferase 44 U/L (14-36); Bilirubin,Total 0.5 mg/dL (0.2-1.3); Blood Urea Nitrogen 27 mg/dL (7-17); Calcium 8.8 mg/dL (8.4-10.2); Carbon Dioxide 30 mmol/L (22-30); Chloride 103 mmol/L (98-107); Cholesterol 214 mg/dL (0-200); Estimated Glomerular Filt Rate 57; Glucose 58 mg/dL (65-110); HDL Direct 76 mg/dL; Potassium 4.5 mmol/L (3.4-5.0); Sodium 139 mmol/L (137-145); Triglycerides 60 mg/dL (<150); Uric Acid 3.9 mg/dL (2.5-7.5)
[2024-06-27 21:16] LABS: LDL Cholesterol Direct 90 mg/dL
[2024-06-27 21:22] LABS: Vitamin D 25 Hydroxy 62.6 ng/mL
== END 2024-06-27 08:10 | disposition home or self-care (01) ==
LOC: ANHGOSHLAB 08:10
PROVIDERS: PCP Nurse Practitioner; Visit Provider Nurse Practitioner
DX: E78.5 Hyperlipidemia, unspecified (principal); F41.9 Anxiety disorder, unspecified; E53.8 Deficiency of other specified B group vitamins; E55.9 Vitamin D deficiency, unspecified; M10.9 Gout, unspecified
CPT/HCPCS: 36415; 80053; 80061; 82306; 82607; 84443; 84550; 85027